=== PATIENT | male | born 1995 | race Caucasian/White ===

== ENCOUNTER 2019-10-01 16:37 | Emergency (ER) | payer SELFPAY ==
--- NOTE | ~2019-10-01 | XR_ITS ---
XR finger 1st LT min 2V 10/01/2019 16:54 INDICATION: Left first finger pain PROCEDURE: 3 views left first finger COMPARISON: No prior studies for comparison. FINDINGS: Fracture, dislocation or subluxation is not identified. The soft tissues appear within norm al limits. No foreign bodies are identified. IMPRESSION: 1: NO ACUTE BONE OR JOINT ABNORMALITY IDENTIFIED. Reviewed, dictated and finalized at location A.
--- NOTE | 2019-10-01 16:42 | ED.UPPEXIN ---
HPI - Extremity Injury (Upper) General Chief Complaint: Extremity Injury, Upper Stated Complaint: Thumb injury Time Seen by Provider: 10/01/19 16:42 Source: patient and RN notes reviewed History of Present Illness HPI narrative: Patient is a 24-year-old male who presents the urgent care with complaints of a left thumb injury. Patient states that he smashed it in between a piece of metal on a lawnmower . Patient states that the throbbing and the pain has increased since it initially happened approximately 2 hours ago. Patient has not taken anything [id number] for his symptoms. Patient is not up-to-date on his tetanus. No other acute complaints or injuries. Patient aware of the plan of care. Related Data Allergies Allergy/AdvReac Type Severity Reaction Status Date / Time No Known Allergies Allergy Verified 10/01/19 16:55 Review of Systems Review of Systems: Narrative: CONSTITUTIONAL: Denies fever, chills, or sweats. EYES: Denies visual changes, redness, or discharge. ENT: Denies rhinorrhea, congestion, sore throat, or otalgia. CARDIOVASCULAR: Denies chest pain, palpitations, or edema. RESPIRATORY: Denies cough or dyspnea. GASTROINTESTINAL: Denies abdominal pain, nausea, vomiting, or diarrhea. GENITOURINARY: Denies dysuria or hematuria. SKIN: Denies rash or itching. MUSCULOSKELETAL: Reports of left thumb pain and swelling due to injury NEUROLOGIC: Denies headache, numbness, or weakness. All other systems reviewed are negative, except as documented in HPI. PMFSH Comments At the time of my signature, I reviewed and agree with the nursing past medical, surgical, social, and family history. There is no relevant family history pertinent to the patient complaint. Exam Narrative: Exam Narrative: GENERAL: This is a well-nourished, well-developed patient, in no apparent distress. HEAD: normocephalic, atraumatic. EYES: PERRL. Sclera clear/white. Vision is grossly intact. EARS: External ears normal NOSE: External nose normal with no obvious nasal discharge THROAT: Mucous membranes moist NECK: Neck supple SKIN: 1 cm linear abrasion to the left thumb. Warm, intact with no suspicious lesions or rash, good texture and turgor. NEURO: awake, alert, and oriented to person, place and time. There were no obvious focal neurologic abnormalities. EXTREMITIES: Moderate edema and ecchymosis noted to the MCP of the left thumb with moderate tenderness. Range of motion not tested due to pain. Positive strong left radial pulse with capillary refill less than 2 seconds. Course Vital Signs Vital signs: Vital Signs Temperature 98.8 F 10/01/19 16:46 Pulse Rate 82 10/01/19 16:46 Respiratory Rate 16 10/01/19 16:46 Blood Pressure 129/60 10/01/19 16:46 Pulse Oximetry 100 10/01/19 16:46 Temperature 98.8 F 10/01/19 16:46 Pulse Rate 82 10/01/19 16:46 Respiratory Rate 16 10/01/19 16:46 Blood Pressure 129/60 10/01/19 16:46 Pulse Oximetry 100 10/01/19 16:46 Reviewed Procedures Orthopedic Splinting/Casting Injury #1: Side: left Pre-Formed: metal foam finger splint (thumb metal splint ) Pre-Procedure Neuro Vascular Exam: normal Post-Procedure Neuro Vascular Exam: normal Additional Comments: patient tolerated application well MDM - Extremity Injury (Upper) MDM Narrative Medical decision making narrative: Reviewed x-ray results with the patient. He is aware the x-ray was negative for fracture. Advised the patient to wear the splint for comfort for the next 3 days. Use ibuprofen as needed for pain. Make sure to eat and drink with the medication. If you notice any increase in swelling associated with severe pain or redness?go to the ER. Follow-up with your PCP within 2 to 5 days or for worsening symptoms or failure to improve. Patient does not wish to be given a tetanus shot at this time. Imaging Data Radiologist's impression: [place] [id number] [address] [facility] [place]
[2019-10-01 16:46] VITALS: BP 129/60; PULSE 82; RESP 16; TEMP 37.1; O2SAT 100
== END 2019-10-01 17:12 | disposition home or self-care (01) ==
PROVIDERS: Emergency Provider Nurse Practitioner Family
DX: S69.92XA Unspecified injury of left wrist, hand and finger(s), initial encounter (principal); W28.XXXA Contact with powered lawn mower, initial encounter
CPT/HCPCS: 29130; 73140; 99203; G0463

== ENCOUNTER 2019-10-27 13:36 | Emergency (ER) | payer SELFPAY ==
[2019-10-27 13:45] VITALS: BP 117/62; PULSE 85; RESP 16; TEMP 36.4; O2SAT 98
--- NOTE | 2019-10-27 14:01 | ED.LOWEXIN ---
HPI - Extremity Injury (Lower) General Chief Complaint: Extremity Injury, Lower Stated Complaint: right knee pain/swollen Time Seen by Provider: 10/27/19 13:52 Source: patient and RN notes reviewed Mode of arrival: ambulatory Limitations: no limitations History of Present Illness HPI Narrative: 24-year-old male presents with concern for right knee pain. Reports yesterday he was wrestling around with a friend, the friend fell onto the knee. Reports knee swelling, lateral and medial pain. Reports minimal pain when he is at rest, pain increases with range of motion, weightbearing. Reports he feels unable to straighten his knee. He denies any lower leg or foot pain, tingling, swelling. Denies any intervention for his injury MD complaint: knee injury Injury: Right: knee Related Data Allergies Allergy/AdvReac Type Severity Reaction Status Date / Time No Known Allergies Allergy Verified 10/27/19 14:00 Review of Systems Review of Systems: Narrative: CONSTITUTIONAL: Denies malaise, chills, sweats, or fever. SKIN: Denies redness, bruising MUSCULOSKELETAL: Reports right knee pain, swelling, decreased range of motion NEUROLOGIC: Denies numbness, weaknessn. All systems reviewed & are unremarkable except as noted in HPI and below PMFSH Comments At time of signature, agree with nursing past medical, surgical, social and family history. There is no relevant family history pertinent to the presenting complaint Exam Narrative: Exam Narrative: GENERAL: Well-appearing, well-nourished, and in no acute distress. HEAD: Normocephalic, atraumatic. EYES: PERRLA, conjunctivae clear NECK: Supple. CHEST: Speaks in full sentences. No respiratory distress. HEART: Regular rate and rhythm. Normal and equal peripheral pulses. EXTREMITIES: Right knee has normal sensation. Moderate circumferential edema, limited range of motion. 3 /5 strength with knee flexion and extension. Normal sensation with sensitivity to light touch and pain. No open wounds, no skin tenting, no devitalized tissue or atrophy, no trophic changes, no ecchymosis, no obvious deformity, alignment normal, medial and lateral tenderness, nearby joints and structures intact. Distal pulses palpable and equal bilaterally, skin warm, dry, pink. Capillary refill less than 3 seconds. Lever test negative, anterior drawer test negative SKIN: Warm, dry, no rash. NEURO: Alert and oriented x3. PSYCH: Normal mood and affect Course Course Emergency Course: Patient is aware of diagnosis, understands and agrees to treatment plan. Anticipatory guidance given. Patient agrees to follow-up as directed and is aware of reasons to seek care at the emergency department. Portions of this record may have been created with voice recognition software Vital Signs Vital signs: Vital Signs Temperature 97.5 F L 10/27/19 13:45 Pulse Rate 85 10/27/19 13:45 Respiratory Rate 16 10/27/19 13:45 Blood Pressure 117/62 10/27/19 13:45 Pulse Oximetry 98 10/27/19 13:45 Temperature 97.5 F L 10/27/19 13:45 Pulse Rate 85 10/27/19 13:45 Respiratory Rate 16 10/27/19 13:45 Blood Pressure 117/62 10/27/19 13:45 Pulse Oximetry 98 10/27/19 13:45 Reviewed. MDM - Extremity Injury (Lower) MDM Narrative Medical decision making narrative: Patients injury and pain is consistent with musculoskeletal etiology. No signs of neurological or vascular compromise on exam. Compartments and tissues are soft without signs of compartment syndrome. Pain is felt appropriate for further evaluation on an outpatient basis. Critical Care Time Critical Care Time Critical Care Time: No Discharge Plan Discharge Clinical Impression: Injury of knee Qualifiers: Encounter type: initial encounter Laterality: right Qualified Code(s): S89.91XA - Unspecified injury of right lower leg, initial encounter Patient Disposition: Home, Self-Care Condition: Stable Instructions: Knee Pain (ED) Additional Instructions: A
== END 2019-10-27 14:11 | disposition home or self-care (01) ==
PROVIDERS: Emergency Provider Nurse Practitioner
DX: S89.91XA Unspecified injury of right lower leg, initial encounter (principal); Y93.83 Activity, rough housing and horseplay; W18.39XA Other fall on same level, initial encounter
CPT/HCPCS: 99213; G0463

== ENCOUNTER 2019-12-23 10:46 | Emergency (ER) | payer SELFPAY ==
[2019-12-23 10:52] VITALS: BP 124/82; PULSE 56; RESP 18; TEMP 36.4; O2SAT 100
--- NOTE | 2019-12-23 11:09 | ED.GENADULT ---
HPI - General Adult General Chief complaint: Dental/Oral Stated complaint: tooth pain Time Seen by Provider: 12/23/19 11:09 Source: patient and RN notes reviewed Mode of arrival: ambulatory Limitations: no limitations History of Present Illness HPI narrative: 24-year-old male presents with complaints of dental pain for 1 day. Excedrin without relief. Waqas says he broke a tooth off several years ago and has been having trouble without treatment. Denies any drainage. No fever. No jaw swelling. No neck swelling. No limitation with speaking or swallowing. Has history of dental caries. Has not seen a dentist recently. No dental trauma. No oral lesions. Exacerbating factors consist of chewing eating and drinking cold items. Relieving factors avoiding cold items. No dentures or bridges. Tolerating liquids well. The patient reports he have not been diagnosed with COVID-19. The patient reports he is not waiting for the results of a COVID-19 lab test. The patient reports he do not have fever, chills, weakness, fatigue, myalgia, or facial swelling. The patient reports he do not have a new or worsening cough or shortness of breath. Denies chest pain. The patient reports he do not have any rhinorrhea, congestion, sore throat, nausea, vomiting, abdominal pain, and diarrhea. Tolerating po intake well. Denies recent traveling. Denies concerns for COVID-19 or exposures been home with limited outdoor exposure except for essential household needs, work, and return home. At this time, patient is not suspected of having COVID-19. Some parts of this dictation were generated by voice recognition software and may contain typographical and/or grammatical inaccuracies. Related Data Allergies Allergy/AdvReac Type Severity Reaction Status Date / Time No Known Allergies Allergy Verified 12/23/19 10:57 Review of Systems Review of Systems: Narrative: CONSTITUTIONAL: Denies fever, chills, sweats. EYES: Denies visual changes, redness, discharge. ENT: Denies rhinorrhea, congestion, sore throat, otalgia. Complains of front lower dental pain. CARDIOVASCULAR: Denies chest pain, palpitations, edema. RESPIRATORY: Denies dyspnea, wheezing, cough. GASTROINTESTINAL: Denies abdominal pain, nausea, vomiting, diarrhea. GENITOURINARY: Denies dysuria, hematuria, abnormal discharge. SKIN: Denies rash or itching. MUSCULOSKELETAL: Denies acute back pain, joint pain, or myalgia. NEUROLOGIC: Denies numbness or focal weakness. PSYCHIATRIC: Denies anxiety or depression. All systems reviewed & are unremarkable except as noted in HPI and below. [facility] Past Medical History Medical History (Updated 12/23/19 @ 11:26 by ROLANDO Worley) History of gastroesophageal reflux (GERD) Wrist fracture, bilateral at growth plates Surgical History Surgical History (Updated 12/23/19 @ 11: by ROLANDO Worley) No significant past surgical history Family History Family History (Updated 12/23/19 @ 11: by ROLANDO Worley) Father Unknown family medical history Mother Alive and well Social History Social History (Updated 12/23/19 @ 11: by ROLANDO Worley) Tobacco type: e-cigarettes/vaping Alcohol intake: current Substance use: former Living arrangements: with family Occupation/Education: occupation Gender identity (if verbalized by the patient): Male Sexual Orientation (if Verbalized by the Patient): Straight or Heterosexual Comments At time of signature, agree with nurse past medical, surgical, social, and family history. There is no relevant family history pertinent to the presenting complaint. Exam Narrative: Exam Narrative: GENERAL: This is a well-nourished, well-developed patient, in no apparent distress. Talks in full sentences ans ambulates with steady gait without dyspnea. HEAD: normocephalic, atraumatic. EYES: PERRL. Sclera clear/white. Vision is grossly intact. EARS: External ears normal, coding auditor
== END 2019-12-23 11:24 | disposition home or self-care (01) ==
PROVIDERS: Emergency Provider Nurse Practitioner Family
DX: K02.9 Dental caries, unspecified (principal); K08.89 Other specified disorders of teeth and supporting structures; F17.200 Nicotine dependence, unspecified, uncomplicated; K21.9 Gastro-esophageal reflux disease without esophagitis
CPT/HCPCS: 99213; G0463

== ENCOUNTER 2020-04-04 16:48 | Emergency (ER) | payer SELFPAY ==
[2020-04-04 16:50] VITALS: BP 126/71; PULSE 70; RESP 18; TEMP 36.8; O2SAT 100
--- NOTE | 2020-04-04 16:54 | ED.MALEGU ---
HPI - Male Genitourinary General Chief complaint: Urogenital-Male Stated complaint: std test Time Seen by Provider: 04/04/20 16:54 History of Present Illness HPI Narrative: Patient presents with discomfort to the tip of the penis and a thin white discharge for the past week. Patient denies any back pain no fever. Patient thinks he has been exposed to an STD day but is unsure which one. Patient would like treated and tested for STDs today. Patient denies any gross hematuria no abdominal pain patient denies any testicle pain. Related Data Allergies Allergy/AdvReac Type Severity Reaction Status Date / Time No Known Allergies Allergy Verified 04/04/20 17:05 Review of Systems Review of Systems: Narrative: CONSTITUTIONAL: Denies fever, chills, or sweats. EYES: Denies visual changes, redness, or discharge. ENT: Denies rhinorrhea, congestion, sore throat, or otalgia. CARDIOVASCULAR: Denies chest pain, palpitations, or edema. RESPIRATORY: Denies cough or dyspnea. GASTROINTESTINAL: Denies abdominal pain, nausea, vomiting, or diarrhea. GENITOURINARY: Denies dysuria or hematuria. SKIN: Denies rash or itching. MUSCULOSKELETAL: Denies back pain, joint pain, or myalgia. NEUROLOGIC: Denies headache, numbness, or weakness. PSYCHIATRIC: Denies anxiety or depression. CONSTITUTIONAL: Denies fever, chills, or sweats. EYES: Denies visual changes, redness, or discharge. ENT: Denies rhinorrhea, congestion, sore throat, or otalgia. CARDIOVASCULAR: Denies chest pain, palpitations, or edema. RESPIRATORY: Denies cough or dyspnea. GASTROINTESTINAL: Denies abdominal pain, nausea, vomiting, or diarrhea. GENITOURINARY: Denies dysuria or hematuria. SKIN: Denies rash or itching. MUSCULOSKELETAL: Denies back pain, joint pain, or myalgia. NEUROLOGIC: Denies headache, numbness, or weakness. PSYCHIATRIC: Denies anxiety or depression. Allergic/Immunologic: Comments: At time of signature, agree with nursing past medical, surgical, social and family history. There is no relevant family history pertinent to the presenting complaint [facility] Past Medical History Medical History (Updated 04/04/20 @ 17:11 by ROLANDO Freeman) History of gastroesophageal reflux (GERD) Wrist fracture, bilateral at growth plates Surgical History Surgical History (Updated 12/23/19 @ 11:26 by ROLANDO Worley) No significant past surgical history Family History Family History (Updated 12/23/19 @ 11:27 by ROLANDO Worley) Father Unknown family medical history Mother Alive and well Social History Social History (Updated 12/23/19 @ 11:27 by ROLANDO Worley) Tobacco type: e-cigarettes/vaping Alcohol intake: current Substance use: former Gender identity (if verbalized by the patient): Male Comments At time of signature, agree with nursing past medical, surgical, social and family history. There is no relevant family history pertinent to the presenting complaint Exam Narrative: Exam Narrative: GENERAL: Well-appearing, well-nourished, and in no acute distress. HEAD: Normocephalic, atraumatic. EYES: PERRLA and EOMI. ENT: Nares clear, no rhinorrhea or epistaxis. Mucous membranes moist. NECK: Supple. CHEST: Clear to auscultation. No respiratory distress. HEART: Regular rate and rhythm. No murmur heard. Normal peripheral pulses. ABDOMEN: Soft, nontender, nondistended, normal active bowel sounds. Normal exam no penile lesions no testicular swelling and no tenderness EXTREMITIES: Normal range of motion. No edema. SKIN: Warm, dry, no rash. NEURO: No focal deficits. Alert and oriented x3. Nuno Coma Scale Eye Opening: Spontaneous 4 Nuno Coma Scale Motor: Obeys Commands 6 Darwin Coma Scale Verbal: Oriented 5 Nuno Coma Scale Total 15 : General: Yes no CVA tenderness Male General Exam: Yes normal external exam Testes: Testes normal Course Vital Signs Vital signs: Vital Signs Temperature 36.8 C 04/04/20 16:50 P
[2020-04-04] MEDS: cefTRIAXone 250 MG VIAL IM (17:16)
[2020-04-04] MEDS: LIDOCAINE HCL 1% LOCAL INJ 20 ML VIAL IM (17:17)
[2020-04-04] MEDS: AZITHROMYCIN 250 MG TABLET 500 MG PO ×2 (17:27→17:28)
== END 2020-04-04 17:50 | disposition home or self-care (01) ==
PROVIDERS: Emergency Provider Nurse Practitioner Family
DX: A64 Unspecified sexually transmitted disease (principal); F17.200 Nicotine dependence, unspecified, uncomplicated; K21.9 Gastro-esophageal reflux disease without esophagitis
CPT/HCPCS: 81003; 87086; 87491; 87591; 87661; 96372; 99213; A9270; G0463; J0696

== ENCOUNTER 2020-09-26 15:18 | Emergency (ER) | payer SELFPAY ==
[2020-09-26 15:29] VITALS: BP 132/87; PULSE 85; RESP 16; TEMP 37; O2SAT 100
--- NOTE | 2020-09-26 15:42 | ED.DENTAL ---
HPI - Dental/Oral General Chief complaint: Dental/Oral Stated complaint: tooth pain Time Seen by Provider: 09/26/20 15:28 Source: patient and RN notes reviewed Mode of arrival: ambulatory Limitations: no limitations History of Present Illness HPI Narrative: Patient presents today complaining of dental pain to the right lower anterior tooth that has been bothering him for the past 3 days. States he has several chipped teeth that he needs taken care of but has not been able to due to insurance concerns/issues. Denies fever, shortness of breath, difficulty swallowing. Denies any recent antibiotic use. Currently rates pain 9/10 and has been taking ibuprofen with mild relief, and also using Orajel. MD Complaint: tooth pain Related Data Allergies Allergy/AdvReac Type Severity Reaction Status Date / Time No Known Allergies Allergy Verified 04/04/20 17:05 Review of Systems Review of Systems: Narrative: CONSTITUTIONAL: Denies body aches, fever, chills, or sweats. EYES: Denies visual changes, redness, or discharge. ENT: Denies rhinorrhea, congestion, sore throat, or otalgia.+ Dental pain CARDIOVASCULAR: Denies chest pain, palpitations, or edema. RESPIRATORY: Denies cough or dyspnea. GASTROINTESTINAL: Denies abdominal pain, nausea, vomiting, or diarrhea. GENITOURINARY: Denies dysuria or hematuria. SKIN: Denies rash, itching, or wounds. MUSCULOSKELETAL: Denies back pain, joint pain, or myalgia. NEUROLOGIC: Denies headache, numbness, tingling, or weakness. PSYCH: Denies depression or anxiety. [facility] Past Medical History Medical History (Updated 09/26/20 @ 15:45 by Rody Landry, ROLANDO, ) History of gastroesophageal reflux (GERD) Wrist fracture, bilateral at growth plates Surgical History Surgical History (Updated 12/23/19 @ 11:26 by ROLANDO Worley) No significant past surgical history Family History Family History (Updated 12/23/19 @ 11:27 by ROLANDO Worley) Father Unknown family medical history Mother Alive and well Social History Social History (Updated 12/23/19 @ 11:27 by ROLANDO Worley) Tobacco type: e-cigarettes/vaping Alcohol intake: current Substance use: former Gender identity (if verbalized by the patient): Male Comments At time of signature, I have reviewed and agree with nursing past medical, surgical, social and family history unless otherwise noted. Please see nursing chart for further information. There is no relevant family history pertinent to the presenting complaint Exam Narrative: Exam Narrative: GENERAL: Well-appearing, well-nourished, and in no acute distress. HEAD: Normocephalic, atraumatic. EYES: EOMI. No redness or drainage. Conjunctivae normal. ENT: Mucous membranes pink and moist. Throat normal. Uvula midline. Tenderness and erythema to gumline adjacent to tooth #26. No obvious periapical abscess. No facial swelling. Tooth intact. NECK: Normal AROM. CHEST: No respiratory distress. EXTREMITIES: Normal range of motion. No edema. SKIN: Warm, dry, no rash. Capillary refill normal. Normal skin turgor. NEURO: No focal deficits. Alert and oriented x3. Gait steady. PSYCH: Normal affect. No signs of depression or anxiety. Course Vital Signs Vital signs: Vital Signs Temperature 98.6 F 09/26/20 15:29 Pulse Rate 85 09/26/20 15:29 Respiratory Rate 16 09/26/20 15:29 Blood Pressure 132/87 09/26/20 15:29 Pulse Oximetry 100 09/26/20 15:29 Temperature 98.6 F 09/26/20 15:29 Pulse Rate 85 09/26/20 15:29 Respiratory Rate 16 09/26/20 15:29 Blood Pressure 132/87 09/26/20 15:29 Pulse Oximetry 100 09/26/20 15:29 Reviewed. Pt has been instructed to follow up with his PCP regarding his elevated blood pressure today. MDM - Dental/Oral Differential Diagnosis Differential diagnosis: Likely gingival abscess, dental caries, toothache, dental abscess and fracture of tooth Critical Care Time Critical Care Time Cr
== END 2020-09-26 15:49 | disposition home or self-care (01) ==
PROVIDERS: Emergency Provider Nurse Practitioner
DX: K04.7 Periapical abscess without sinus (principal); F17.200 Nicotine dependence, unspecified, uncomplicated; K21.9 Gastro-esophageal reflux disease without esophagitis
CPT/HCPCS: 99213; G0463

== ENCOUNTER 2021-12-04 17:03 | Emergency (ER) | payer OTHER, SELFPAY ==
[2021-12-04 17:25] VITALS: BP 136/73; PULSE 84; RESP 16; TEMP 36.8; O2SAT 100
--- NOTE | 2021-12-04 17:49 | ED.GENADULT ---
HPI - General Adult General Chief complaint: Dental/Oral Stated complaint: Pain in mouth Source: patient Mode of arrival: ambulatory Limitations: no limitations History of Present Illness HPI narrative: Patient presents for evaluation of right upper dental pain for the last 3 days. He indicates he fractured his wisdom tooth. Reports constant, throbbing pain in the affected area. He rates his pain 10 out of 10 in severity. No fever, chills, nausea, vomiting, difficulty breathing or swallowing. He took 400 mg of ibuprofen which seemed to help. He thinks he may have a dental infection. No additional complaints or concerns Related Data Allergies Allergy/AdvReac Type Severity Reaction Status Date / Time No Known Allergies Allergy Verified 12/04/21 17:28 Review of Systems Review of Systems: CONSTITUTIONAL: Denies fever, chills, or sweats. EYES: Denies visual changes, redness, or discharge. ENT: Reports right upper dental pain. Denies rhinorrhea, congestion, sore throat, or otalgia. CARDIOVASCULAR: Denies chest pain, palpitations, or edema. RESPIRATORY: Denies cough or dyspnea. GASTROINTESTINAL: Denies abdominal pain, nausea, vomiting, or diarrhea. GENITOURINARY: Denies dysuria or hematuria. SKIN: Denies rash or itching. MUSCULOSKELETAL: Denies back pain, joint pain, or myalgia. NEUROLOGIC: Denies headache, numbness, dizziness, or weakness. PSYCHIATRIC: Denies anxiety or depression. [facility] Past Medical History Medical History History of gastroesophageal reflux (GERD) Tooth fracture Wrist fracture, bilateral at growth plates Surgical History Surgical History No significant past surgical history Family History Family History Father Unknown family medical history Mother Alive and well Social History Social History Tobacco type: e-cigarettes/vaping Alcohol intake: current Substance use: former Gender identity (if verbalized by the patient): Male Sexual Orientation (if Verbalized by the Patient): Straight or Heterosexual Exam Narrative: GENERAL: Well-appearing, well-nourished, and in no acute distress. HEAD: Normocephalic, atraumatic. EYES: PERRLA and EOMI. ENT: Nares clear, no rhinorrhea or epistaxis. Mucous membranes moist. Tooth #1 is fractured. There is no visible or palpable dental abscess. No trismus. Oropharynx without tonsillar hypertrophy exudate or other lesions. Bilateral TMs pearly bosch nonbulging NECK: Supple. No adenopathy or masses. No carotid bruits or JVD CHEST: Clear to auscultation. No respiratory distress. No wheezes rales or rhonchi HEART: Regular rate and rhythm. No murmur heard. Normal peripheral pulses. ABDOMEN: Soft, nontender, nondistended, normal active bowel sounds. EXTREMITIES: Normal range of motion. No edema. SKIN: Warm, dry, no rash. NEURO: No focal deficits. Alert and oriented x3. PSYCH: Normal mood and affect. Course Course Emergency Course: This is a 26-year-old male that presented for evaluation of right upper dental pain. He has a dental fracture in the affected area. We will cover him amoxicillin. High-dose ibuprofen should help. Tramadol for breakthrough pain. Follow-up with dentist. Go to the ER for significant swelling, difficulty breathing or swallowing. Patient is in agreement with plan of care Level of Care: Express Care Visit Vital Signs Vital signs: Vital Signs Temperature 36.8 C 12/04/21 17:25 Pulse Rate 84 12/04/21 17:25 Respiratory Rate 16 12/04/21 17:25 Blood Pressure 136/73 12/04/21 17:25 Pulse Oximetry 100 12/04/21 17:25 Oxygen Delivery Room Air 12/04/21 17:25 Temperature 36.8 C 12/04/21 17:25 Pulse Rate 84 12/04/21 17:25 Respiratory Rate 16 12/04/21 17:25 Blo
== END 2021-12-04 17:51 | disposition home or self-care (01) ==
PROVIDERS: Emergency Provider Nurse Practitioner
DX: S02.5XXA Fracture of tooth (traumatic), initial encounter for closed fracture (principal); X58.XXXA Exposure to other specified factors, initial encounter; K21.9 Gastro-esophageal reflux disease without esophagitis
CPT/HCPCS: 99213; G0463

== ENCOUNTER 2022-01-14 16:13 | Emergency (ER) | payer OTHER, SELFPAY ==
[2022-01-14 16:16] VITALS: BP 140/77; PULSE 69; RESP 14; TEMP 36.9; O2SAT 100
--- NOTE | 2022-01-14 16:29 | ED.DENTAL ---
HPI - Dental/Oral General Chief complaint: Dental/Oral Stated complaint: Toothache Time Seen by Provider: 01/14/22 16:29 Source: patient Mode of arrival: ambulatory History of Present Illness HPI Narrative: 26 y/o male presented for c/o right upper wisdom tooth pain and swelling for 2 days. This site was fractured at least 2 months ago. He has appt for extraction next week.Was seen and treated for the same on 12/04/21. Completed meds as directed. Denies nausea, vomiting, dizziness, difficulty swallowing, fever or chills. Taking Tylenol and ibuprofen as needed for pain MD Complaint: tooth pain Related Data Allergies Allergy/AdvReac Type Severity Reaction Status Date / Time No Known Allergies Allergy Verified 01/14/22 16:30 Review of Systems Review of Systems: CONSTITUTIONAL: Denies body aches, fever, chills ENT: Denies rhinorrhea, congestion, sore throat, or otalgia. Reports dental pain CARDIOVASCULAR: Denies chest pain, palpitations RESPIRATORY: Denies cough or dyspnea. SKIN: Denies rash, itching, or wounds. MUSCULOSKELETAL: Denies myalgia. NEUROLOGIC: Denies headache, numbness, tingling, or weakness. [facility] Past Medical History Medical History History of gastroesophageal reflux (GERD) Tooth fracture Wrist fracture, bilateral at growth plates Surgical History Surgical History No significant past surgical history Family History Family History Father Unknown family medical history Mother Alive and well Social History Social History Tobacco type: e-cigarettes/vaping Alcohol intake: current Substance use: former Gender identity (if verbalized by the patient): Male Sexual Orientation (if Verbalized by the Patient): Straight or Heterosexual Comments At time of signature, I have reviewed and agree with nursing past medical, surgical, social and family history unless otherwise noted. Please see nursing chart for further information. There is no relevant family history pertinent to the presenting complaint Exam Narrative: GENERAL: Appears in pain; no acute distress. HEAD: Normocephalic, atraumatic. EYES: EOMI. No redness or drainage. Conjunctivae normal. ENT: Dental pain location of #1, fractured tooth at this site, tender to palpation, mild swelling without active drainage; Mucous membranes pink and moist. TMs normal bilaterally. Throat normal. Uvula midline. NECK: Normal AROM. No lymphadenopathy. CHEST: Clear to auscultation. HEART: Regular rate and rhythm. No murmur appreciated. SKIN: Warm, dry, no rash. Normal skin turgor. NEURO: Alert and oriented x3. Gait steady. Course Course Emergency Course: Patient is aware of diagnosis, understands and agrees to treatment plan. Anticipatory guidance given. Patient agrees to follow-up as directed and is aware of reasons to seek care at the emergency department. Portions of this record may have been created with voice recognition software Level of Care: Express Care Visit Vital Signs Vital signs: Vital Signs Temperature 98.5 F 01/14/22 16:16 Pulse Rate 69 01/14/22 16:16 Respiratory Rate 14 01/14/22 16:16 Blood Pressure 140/77 01/14/22 16:16 Pulse Oximetry 100 01/14/22 16:16 Oxygen Delivery Room Air 01/14/22 16:16 Temperature 98.5 F 01/14/22 16:16 Pulse Rate 69 01/14/22 16:16 Respiratory Rate 14 01/14/22 16:16 Blood Pressure 140/77 01/14/22 16:16 Pulse Oximetry 100 01/14/22 16:16 Oxygen Delivery Room Air 01/14/22 16:16 MDM - Dental/Oral MDM Narrative Medical decision making narrative: There are no focal signs of space occupying lesions that are compromising to the airway; No uvular deviation or soft palate edema. Patient is non-toxic appearing. The floor of the jesus
== END 2022-01-14 16:37 | disposition home or self-care (01) ==
PROVIDERS: Emergency Provider Nurse Practitioner Family
DX: S02.5XXA Fracture of tooth (traumatic), initial encounter for closed fracture (principal); X58.XXXA Exposure to other specified factors, initial encounter; K21.9 Gastro-esophageal reflux disease without esophagitis
CPT/HCPCS: 99213; G0463

== ENCOUNTER 2022-04-16 16:26 | Emergency (ER) | payer OTHER, SELFPAY ==
[2022-04-16 16:32] VITALS: BP 128/63; PULSE 123; RESP 16; TEMP 35.9; O2SAT 99
--- NOTE | 2022-04-16 17:38 | ED.URI ---
HPI - URI/Sore Throat General Chief Complaint: Upper Respiratory Infection Stated Complaint: Chills/Body Ache Time Seen by Provider: 04/16/22 17:38 Source: patient, RN notes reviewed and old records reviewed Mode of arrival: ambulatory Limitations: no limitations History of Present Illness HPI Narrative: 26-year-old male presents to [facility] with complaints of chills, body aches,headache, and fevers which started today, he has been taking Tylenol for his symptoms. Patient reports that he has been vaccinated for COVID, has not had flu shot. Patient reports that he had COVID in October of 2021, did home test today and it was negative. MD elicited complaint: fever, cough and other (chills and body aches) Onset (ago): day(s) (1) Pain scale (0-10): 5 Treatments prior to arrival: acetaminophen Related Data Allergies Allergy/AdvReac Type Severity Reaction Status Date / Time No Known Allergies Allergy Verified 01/14/22 16:30 Review of Systems Review of Systems: CONSTITUTIONAL:Reports malaise, chills, sweats, or fever. EYES: Denies visual changes, redness, or discharge. ENT: Reports rhinorrhea, congestion, sinus pain, no otalgia or sore throat. CARDIOVASCULAR: Denies chest pain, palpitations, or edema. RESPIRATORY: Reports cough.? Denies dyspnea. GASTROINTESTINAL: Denies abdominal pain, nausea, vomiting, diarrhea SKIN: Denies rash or itching. MUSCULOSKELETAL:Reports myalgia. NEUROLOGIC: reports headache. All systems reviewed & are unremarkable except as noted in HPI and below PMFSH Past Medical History Medical History History of gastroesophageal reflux (GERD) Tooth fracture Wrist fracture, bilateral at growth plates Surgical History Surgical History No significant past surgical history Family History Family History Father Unknown family medical history Mother Alive and well Social History Social History Tobacco type: e-cigarettes/vaping Alcohol intake: current Substance use: former Gender identity (if verbalized by the patient): Male Sexual Orientation (if Verbalized by the Patient): Straight or Heterosexual Comments At time of signature, agree with nursing past medical, surgical, social and family history. There is no relevant family history pertinent to the presenting complaint Exam Narrative: GENERAL: Well-appearing, well-nourished, and in no acute distress. HEAD: Normocephalic EYES: PERRLA, conjunctivae clear ENT: Nares clear, turbinates edematous and erythematous, clear discharge. Mucous membranes moist. TM pearly bosch with dull light reflex bilaterally; no tragal tenderness. Oropharynx erythematous without lesions. Tonsils not enlarged and without exudate, no drooling, no hoarseness, no trismus, uvula midline, post nasal drainage NECK: Supple. No lymphadenopathy CHEST: Clear to auscultation, breath sounds equal. No wheezing, rhonchi, rales, or stridor. No respiratory distress, speaks in full sentences.dry cough noted SAO2 99% on room air HEART: Regular rate and rhythm. No murmur heard. SKIN: Warm, dry, no rash. NEURO: Alert and oriented x3. PSYCH: Normal mood and affect Course Course Emergency Course: Patient is aware of diagnosis, understands and agrees to treatment plan.? Anticipatory guidance given.? Patient agrees to follow-up as directed and is aware of reasons to seek care at the emergency department. Portions of this record may have been created with voice recognition software Level of Care: Express Care Visit Vital Signs Vital signs: Vital Signs Temperature 35.9 C L 04/16/22 16:32 Pulse Rate 123 H 04/16/22 16:32 Respiratory Rate 16 04/16/22 16:32 Blood Pressure 128/63 04/16/22 16:32 Pulse Oximetry 99 04/16/22 16:32
== END 2022-04-16 18:16 | disposition home or self-care (01) ==
PROVIDERS: Emergency Provider Registered Nurse
DX: J10.1 Influenza due to other identified influenza virus with other respiratory manifestations (principal); F17.290 Nicotine dependence, other tobacco product, uncomplicated; K21.9 Gastro-esophageal reflux disease without esophagitis
CPT/HCPCS: 87804; 99213; G0463

== ENCOUNTER 2022-06-27 09:31 | Emergency (ER) | payer OTHER, SELFPAY ==
[2022-06-27 09:35] VITALS: BP 126/68; PULSE 110; RESP 16; TEMP 36.4; O2SAT 100
--- NOTE | 2022-06-27 09:37 | ED.BACK ---
HPI - Back Pain/Injury General Chief Complaint: Back Pain/Injury Stated Complaint: Low Back Pain Time Seen by Provider: 06/27/22 09:37 Source: patient and RN notes reviewed History of Present Illness HPI Narrative: Patient is a 27-year-old male who presents to urgent care with complaints of low back pain. Patient states that he has been having constant spasms off and on for the last 2 weeks which worsened overnight. Patient denies any injury, chronic back pain, or urinary symptoms. States that he has been taking Tylenol for the pain. Patient states that he does do lifting at work however he does not believe that is where he injured his back. Patient states that he was in pain at work this morning and they asked him to obtain a note and see a provider. Patient denies any other acute complaints. No acute distress noted. Patient aware of plan care. Some parts of this dictation were generated by voice recognition software and may contain typographical and/or grammatical inaccuracies. Related Data Allergies Allergy/AdvReac Type Severity Reaction Status Date / Time No Known Allergies Allergy Verified 06/27/22 09:40 Review of Systems Review of Systems: CONSTITUTIONAL: Denies fever, chills, or sweats. EYES: Denies visual changes, redness, or discharge. ENT: Denies rhinorrhea, congestion, sore throat, or otalgia. CARDIOVASCULAR: Denies chest pain, palpitations, or edema. RESPIRATORY: Denies cough or dyspnea. GASTROINTESTINAL: Denies abdominal pain, nausea, vomiting, or diarrhea. GENITOURINARY: Denies dysuria or hematuria. SKIN: Denies rash or itching. MUSCULOSKELETAL: Reports of low back pain NEUROLOGIC: Denies headache, numbness, or weakness. All other systems reviewed are negative, except as documented in HPI. [facility] Past Medical History Medical History History of gastroesophageal reflux (GERD) Tooth fracture Wrist fracture, bilateral at growth plates Surgical History Surgical History No significant past surgical history Family History Family History Father Unknown family medical history Mother Alive and well Social History Social History Tobacco type: e-cigarettes/vaping Alcohol intake: current Substance use: former Living arrangements: with family Occupation/Education: occupation Gender identity (if verbalized by the patient): Male Sexual Orientation (if Verbalized by the Patient): Straight or Heterosexual Comments At the time of my signature, I reviewed and agree with the nursing past medical, surgical, social, and family history. There is no relevant family history pertinent to the patient complaint. Exam Narrative: GENERAL: This is a well-nourished, well-developed patient, in no apparent distress. HEAD: normocephalic, atraumatic. EYES: PERRL. Sclera clear/white. Vision is grossly intact. EARS: External ears normal NOSE: External nose normal with no obvious nasal discharge, nares without redness, no rhinorrhea. THROAT: Mucous membranes moist NECK: Neck supple SKIN: warm, intact with no suspicious lesions or rash, good texture and turgor. NEURO: awake, alert, and oriented to person, place and time. There were no obvious focal neurologic abnormalities. EXTREMITIES: No clubbing, cyanosis, or edema. BACK: Bilateral SLE exam is Course Course Level of Care: Express Care Visit Vital Signs Vital signs: Vital Signs Temperature 97.5 F L 06/27/22 09:35 Pulse Rate 110 H 06/27/22 09:35 Respiratory Rate 16 06/27/22 09:35 Blood Pressure 126/68 06/27/22 09:35 Pulse Oximetry 100 06/27/22 09:35 Oxygen Delivery Room Air 06/27/22 09:35 Temperature 97.5 F L 06/27/22 09:35 Pulse Rate 110 H 06/27/22 09:35 Respiratory Rate 16 06/27/22 09:35 Blood Pr
== END 2022-06-27 09:56 | disposition home or self-care (01) ==
PROVIDERS: Emergency Provider Nurse Practitioner Family; PCP Emergency Medicine
DX: M62.830 Muscle spasm of back (principal); F17.290 Nicotine dependence, other tobacco product, uncomplicated; K21.9 Gastro-esophageal reflux disease without esophagitis
CPT/HCPCS: 99213; G0463

== ENCOUNTER 2022-07-13 12:16 | Outpatient (CLI) | payer OTHER, SELFPAY ==
--- NOTE | ~2022-07-13 | XR_ITS ---
AP and lateral views of the right hip Clinical history: Pain Findings: No acute fracture or dislocation is seen. Osseous alignment is anatomic. Right hip joint is preserved. Soft tissues are unremarkable. Impression: No significant abnormality is seen. Reviewed, dictated and finalized at location M. Y ABROAD COORDINATOR Impression: No significant abnormality is seen.
--- NOTE | ~2022-07-13 | XR_ITS ---
Lumbosacral Spine: AP and lateral views Clinical History: Pain Findings: The normal lordotic curve is maintained. The vertebral bodies and posterior elements are i ntact. The intervertebral disc spaces are preserved. The sacroiliac joints are normally outlined. Impression: No significant abnormality. Reviewed, dictated and finalized at [facility]. [employer] FINANCIAL DEVELOPER Impression: No significant abnormality.
--- NOTE | ~2022-07-13 | XR_ITS ---
AP and lateral views of the left hip Clinical history: Pain Findings: No acute fracture or dislocation is seen. Osseous alignment is anatomic. Left hip joint is preserved. Soft tissues are unremarkable. Impression: No significant abnormality is seen. Reviewed, dictated and finalized at location M. HEAT ROOM ATTENDANT Impression: No significant abnormality is seen.
--- NOTE | ~2022-07-13 | XR_ITS ---
Clinical Indication: Vaping history, smoking history, pain PA and lateral views of the chest: Comparison: None Findings: The lungs are clear, without evidence of focal consolidation or pleural effusion. Cardiome diastinal silhouette is within normal limits. Bones and soft tissues are unremarkable. Impression: Normal chest. Reviewed, dictated and finalized at [facility]. GENCY MEDICINE SPECIALIST Impression: Normal chest.
[2022-07-13 12:36] LABS: Hematocrit 46.3 % (42.0-52.0); Hemoglobin 15.5 g/dL (14.0-18.0); Mean Corpuscular HGB Conc 33.5 g/dl (32-36); Mean Corpuscular Hemoglobin 29.9 pg (26-34); Mean Corpuscular Volume 89.4 fl (80-100); Mean Platelet Volume 11.5 fl (7.4-10.4); Platelet Count Result 220 k/mm3 (150-375); Red Blood Count 5.18 M/mm3 (4.6-6.20); White Blood Count 9.7 K/mm3 (4.5-10.0)
[2022-07-13 12:38] LABS: Appearance Urine Clear (Clear); Bilirubin Urine Negative (Negative); Blood Urine Negative (Negative); Color Urine Yellow (Yellow); Glucose Urine UA Negative (Negative); Ketones Urine Negative (Negative); Leukocyte Esterase Ur Negative LEU/UL (NEGATIVE); Nitrate Urine Negative (Negative); Protein Urine Negative (Negative); Specific Grav Ur 1.019 (1.001-1.035); Urobilinogen Urine 0.2 mg/dL (<2.0)
[2022-07-13 12:45] LABS: Hemoglobin A1C 5.3 % (<5.7)
[2022-07-13 12:50] LABS: Add Urine Microscopic? NO
[2022-07-13 12:52] LABS: Alanine Aminotransferase 24 U/L (6-50); Albumin Level 4.6 g/dL (3.5-5.1); Alkaline Phosphatase 55 U/L (38-126); Anion Gap 6 mmol/L (8-16); Aspartate Amino Transferase 21 U/L (17-59); Bilirubin,Total 0.8 mg/dL (0.2-1.3); Blood Urea Nitrogen 13 mg/dL (9-20); Calcium 8.9 mg/dL (8.4-10.2); Carbon Dioxide 30 mmol/L (22-30); Chloride 100 mmol/L (98-107); Cholesterol 175 mg/dL (0-200); Estimated Glomerular Filt Rate > 60; Glucose 98 mg/dL (65-110); HDL Direct 44 mg/dL; Potassium 4.2 mmol/L (3.4-5.0); Sodium 136 mmol/L (137-145); Triglycerides 113 mg/dL (<150)
[2022-07-13 12:53] LABS: Rheumatoid Factor < 8.6 IU/ML (<12)
[2022-07-13 13:03] LABS: LDL Cholesterol Direct 97 mg/dL
[2022-07-13 13:13] LABS: Free T4 Free Thyroxine 1.25 ng/mL (0.78-2.19); Vitamin D 25 Hydroxy 33.6 ng/mL
[2022-07-13 13:23] LABS: Erythrocyte Sedimentation Rate 6 mm/hr (0-20)
[2022-07-13 13:33] LABS: Creatinine Urine 131.6 mg/dL
[2022-07-13 14:00] LABS: MALB Creatinine Ratio < 4.6 mg/g (0-30); Microalbumin Urine Random < 6.0 mg/L (0-16.7)
== END 2022-07-13 12:17 | disposition home or self-care (01) ==
PROVIDERS: PCP Emergency Medicine; Visit Provider Emergency Medicine
DX: M54.50 Low back pain, unspecified (principal); M25.551 Pain in right hip; M25.552 Pain in left hip; F41.9 Anxiety disorder, unspecified
CPT/HCPCS: 36415; 71046; 72100; 73502; 80053; 80061; 81003; 82043; 82306; 83036; 84439; 84443; 85027; 85652; 86038; 86430

== ENCOUNTER 2023-04-24 17:26 | Emergency (ER) | payer OTHER, SELFPAY ==
[2023-04-24 17:32] VITALS: BP 152/95; PULSE 80; RESP 20; TEMP 36.9; O2SAT 100
[2023-04-24 17:43] VITALS: BP 152/95; PULSE 80; RESP 20; TEMP 36.9; O2SAT 100
--- NOTE | 2023-04-24 17:43 | ED.ABDPAIN ---
HPI - Abdominal Pain General Chief Complaint: Abdominal Pain Stated Complaint: Lower right abdo pain Time Seen by Provider: 04/24/23 17:44 Source: patient and RN notes reviewed Mode of arrival: ambulatory Limitations: no limitations History of Present Illness HPI narrative: 27-year-old male presented for complaint of right lower abdominal pain for 2 days. He reports pain is constant and feels like a pressure. Pain is worse in seated position, feels better laying flat or standing. He rates it about 3/10. Has not taken anything for symptoms. Denies associated nausea, vomiting, diarrhea, fevers or decreased appetite. Denies groin swelling or testicular pain. Denies abdominal surgery. LBM today, loose stool. Related Data Home Medications Medication Instructions Recorded Confirmed No Home Medications 04/24/23 04/24/23 Allergies Allergy/AdvReac Type Severity Reaction Status Date / Time No Known Allergies Allergy Verified 04/24/23 17:43 Review of Systems Review of Systems: CONSTITUTIONAL: Denies body aches, fever, chills ENT: Denies rhinorrhea, congestion CARDIOVASCULAR: Denies chest pain, palpitations, or edema. RESPIRATORY: Denies cough or dyspnea. GASTROINTESTINAL: Endorses RLQ abdominal pain, Denies nausea, vomiting, diarrhea, hematochezia, melena, hematemesis GENITOURINARY: Denies dysuria, hematuria, or CVA tenderness. SKIN: Denies rash, itching, or wounds. MUSCULOSKELETAL: Denies back pain, joint pain, or myalgia. NEUROLOGIC: Denies headache, numbness, tingling, or weakness. All systems reviewed & are unremarkable except as noted in HPI and below PMFSH Past Medical History Medical History History of gastroesophageal reflux (GERD) Tooth fracture Wrist fracture, bilateral at growth plates Surgical History Surgical History No significant past surgical history Family History Family History Father Unknown family medical history Mother Alive and well Social History Social History Tobacco type: e-cigarettes/vaping Alcohol intake: current Substance use: former Living arrangements: with family Occupation/Education: occupation Gender identity (if verbalized by the patient): Male Sexual Orientation (if Verbalized by the Patient): Straight or Heterosexual Comments At time of signature, I have reviewed and agree with nursing past medical, surgical, social and family history unless otherwise noted. Please see nursing chart for further information. There is no relevant family history pertinent to the presenting complaint Exam Narrative: GENERAL: Well-appearing, and in no acute distress. EYES: EOMI. Conjunctivae normal. ENT: Mucous membranes pink and moist. CHEST: No respiratory distress. Clear to auscultation. HEART: Regular rate and rhythm. No murmur appreciated. Normal peripheral pulses. ABDOMEN: abd soft, nondistended, normal active bowel sounds. Mildly Tender abdomen to RLQ and mild tenderness to right groin. No guarding, rebound tenderness, asymmetry, no groin swelling. No organomegaly EXTREMITIES: Normal range of motion. No edema. SKIN: Warm, dry, no rash. Capillary refill normal. Normal skin turgor. NEURO: No focal deficits. Alert and oriented x3. PSYCH: Normal affect. Course Course Emergency Course: Patient is aware of diagnosis, understands and agrees to treatment plan. Anticipatory guidance given. Patient agrees to follow-up as directed and is aware of reasons to seek care at the emergency department. Portions of this record may have been created with voice recognition software Level of Care: Express Care Visit Vital Signs Vital signs: Vital Signs Temperature 98.5 F 04/24/23 17:32 Pulse Rate 80 04/24/23 17:32 Respiratory R
== END 2023-04-24 17:58 | disposition left against medical advice (07) ==
PROVIDERS: Emergency Provider Nurse Practitioner Family; PCP Emergency Medicine
DX: R10.31 Right lower quadrant pain (principal); F17.290 Nicotine dependence, other tobacco product, uncomplicated
CPT/HCPCS: 99212; G0463

== ENCOUNTER 2024-06-17 15:48 | Emergency (ER) | payer OTHER, SELFPAY ==
--- OUTSIDE RECORDS SUMMARY | 2024-06-17 15:51 | XMS_ITS | Clinical Summary ---
Author Organization [facility] Address [address] [place] [address] Phone Care Team Providers Care Air Filler Name Role Phone Ed Matos MD Primary Care Provider [phone] Allergies No known active allergies Medications famotidine (PEPCID) 20 MG Tablet Take 1 Tab by mouth 2 times daily. 30 Tab 10/05/2019 Active ondansetron (ZOFRAN) 4 MG Tablet Take 1 Tab by mouth every 8 hours as needed for Nausea - 1st line. 10 Tab 10/05/2019 Active dicyclomine (BENTYL) 20 MG Tablet Take 1 Tablet by mouth every 6 hours. 30 Tablet 04/24/2023 Active traMADol (ULTRAM) 50 MG TabletIndicatio ns:Dental caries Take 1-2 Tablets by mouth every 6 hours as needed for Moderate or more severe pain. 20 Tablet 10/17/2023 Active Social History Tobacco Use Types Packs/Day Years Used Date Smoking Tobacco: Every Day Cigarettes Smokeless Tobacco: Never Tobacco Cessation:Ready to Q uit: Not Asked; Counseling Given: Not Answered Alcohol Use Standard Drinks/Week Comments Not Currently 0 (1 standard drink = 0.6 oz pur e alcohol) Sex and Gender Information Value Date Recorded Sex Assigned at Not on file Legal Sex Male 12:07 AM CDT Gender Identity Not on file Sexual Orientation Not on file Last Filed Vital Signs Vital Sign Reading Time Taken Comments Blood Pressure 133/69 10/16/2023 11:11 PM CDT Pulse 71 10/16/2023 11:11 PM CDT Temperature 36.7 C (98 F) 10/16/2023 11:11 PM CDT Respiratory Rate 16 04/24/2023 10:53 PM GRADUATE STUDENT INSTRUCTOR Oxygen Saturation 100% 10/16/2023 11:11 PM CDT Inhaled Oxygen Concentration - - Weight 90.7 kg (200 lb) 10/16/2023 11:11 PM CDT Height 180.3 cm (5' 11 ) 10/16/2023 11:11 PM CDT Body Mass Index 27.89 10/16/2023 11:11 PM CDT Plan of Treatment Health Maintenance Due Date Last Done Comments Hepatitis C Virus (HCV) Screening 1994 Hepatitis B Immunization (1 of 3 - 19+ 3-dose series) 2013 Pneumococcal Immunization Combined (1 of 2 - PCV) 2013 Influenza Immunization (#1) 2024 SARS-COV-2 Immunization (2 - season) 2024 03/26/2021 Respiratory Syncytial Virus (RSV) Immunization (Adult) (1 - 1-dose 75+ series) 2069 DTaP/Tdap/Td Immunization Discontinued 11/16/2019 TdaP Immunization Completed 11/16/2019 Meningococcal Immunization (ACWY) Aged Out No longer eligible based on patient's age to complete this topic Rotavirus Immunization Aged Out No lo nger eligible based on patient's age to complete this topic Insurance Care Teams Air Filler Relationship Specialty Start Date End Date Ed Matos MD [address] [address] PCP - General Family Medicine 04/24/23
--- OUTSIDE RECORDS SUMMARY | 2024-06-17 15:51 | XMS_ITS | Clinical Summary ---
Author Organization [facility] Address [address] [place] [address] Care Team Providers Care Golf Course Mechanic Name Role Phone Ed Matos MD Primary Care Provider [phone] Allergies No known active allergies Medications acetaminophen (TYLENOL) 500 mg tablet Take 2 tablets (1,000 mg total) by mouth every 8 (eight) hours as needed for pain for up to 20 doses 40 tablet 3 Active ibuprofen (ADVIL,MOTRIN) 800 mg tablet Take 1 tablet (800 mg total) by mouth every 8 (eight) hours as needed for pain 20 tablet 3 Active oxyCODONE (ROXICODONE) 5 mg immediate release tabletIndicatio ns:Pain Take 1 tablet (5 mg total) by mouth every 8 (eight) hours as needed for pain (Severe, breakthrough pain) 6 tablet 3 Active Active Problems No known active problems Immunizations Name Administration Dates Next Due Tdap 11/16/2019 Social History Tobacco Use Types Packs/Day Years Used Date Smoking Tobacco: Never Assessed Personal Safety Answer Date Recorded Getting School Help Needed Denies 06/28 Sex and Gender Information Value Date Recorded Sex Assigned at Not on file 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 Gender Identity Not on file Sexual Orientation Not on file Obstetrics History Last Filed Vital Signs Vital Sign Reading Time Taken Comments Blood Pressure 146/91 07/17/2022 10:44 PM CDT Pulse 86 07/17/2022 10:44 PM CDT Temperature 37.1 C (98.8 F) 07/17/2022 10:44 PM CDT Respiratory Rate 19 07/17/2022 10:44 PM CDT Oxygen Saturation 100% 07/17/2022 10:44 PM CDT Inhaled Oxygen Concentration - - Weight 89.8 kg (198 lb) 07/17/2022 10:44 PM CDT Height 180.3 cm (5' 11 ) 07/17/2022 10:44 PM CDT Body Mass Index 27.62 07/17/2022 10:44 PM CDT Plan of Treatment Health Maintenance Due Date Last Done Comments Depression Screening 1994 Hepatitis C Screening 1994 Varicella Vaccines (1 of 2 - 13+ 2-dose series) 2007 Hepatitis B Screening 2012 Regular Well Visit/Exam 18-64 2012 Influenza Vaccine (#1) 2024 DTaP/Tdap/Td Vaccine (2 - Td or Tdap) 11/15/2029 11/16/2019 HPV Vaccines Aged Out No longer eligi ble based on patient's age to complete this topic Pneumococcal vaccine <65 Aged Out No longer eligible based on patient's age to complete this topic Insurance * Guarantor: Waqas Holloway Account Type Relation to Patient Date of Phone Billing Address Personal/Family Self [address] [facility] ARACELY ALLEGIANCE Care Teams Golf Course Mechanic Relationship Specialty Start Date End Date Ed Matos MD PCP - General Emergency Medicine 07/18/22
--- OUTSIDE RECORDS SUMMARY | 2024-06-17 15:51 | XMS_ITS | Referral Summary ---
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
[2024-06-17 16:32] VITALS: BP 144/68; PULSE 74; RESP 20; TEMP 36.8; O2SAT 100
--- NOTE | 2024-06-17 17:15 | ED_ITS ---
HPI - URI/Sore Throat General Chief Complaint: Upper Respiratory Infection Stated Complaint: flu symptoms/work note Time Seen by Provider: 06/17/24 17:20 Source: patient, RN notes reviewed and old records reviewed Mode of arrival: ambulatory Limitations: no limitations History of Present Illness HPI Narrative: 29-year-old male presents to [facility] since Friday with body aching, feverish, cough and congestion. He states that he never tested for flu or COVID reports that family had flu. He states that his last fever was at 0400 of 99.5, reports that he has not taken any Tylenol or Ibuprofen today. Patient reports that he needs a work note to return to work. Patient reports that he had been taking Tylenol and Ibuprofen for his symptoms. MD elicited complaint: fever, cough and other (body aches) Onset (ago): day(s) (day 4 of symptoms) Severity: moderate Able to tolerate fluids by mouth: Yes Treatments prior to arrival: acetaminophen and ibuprofen Related Data Home Medications ?Medication ?Instructions ?Recorded ?Confirmed ?Last Taken ?Type No Home Medications 04/24/23 06/17/24 Unknown History Allergies Allergy/AdvReac Type Severity Reaction Status Date / Time No Known Allergies Allergy Verified 06/17/24 16:38 Review of Systems Review of Systems: CONSTITUTIONAL: Reports malaise, chills, sweats, or fever. EYES: Denies visual changes, redness, or discharge. ENT: Reports rhinorrhea, congestion, sinus pain, no otalgia and no sore throat. CARDIOVASCULAR: Denies chest pain, palpitations, or edema. RESPIRATORY: Reports cough.? Denies dyspnea. GASTROINTESTINAL: Denies abdominal pain, nausea, vomiting, diarrhea SKIN: Denies rash or itching. MUSCULOSKELETAL:Reports myalgia. NEUROLOGIC: Denies headache. All systems reviewed & are unremarkable except as noted in HPI and below PMFSH Past Medical History Medical History Tooth fracture Wrist fracture, bilateral at growth plates History of gastroesophageal reflux (GERD) Surgical History Surgical History No significant past surgical history Family History Family History Father Unknown family medical history Mother Alive and well Social History Social History Tobacco type: e-cigarettes/vaping Alcohol intake: current Substance use: former Living arrangements: with family Occupation/Education: occupation Gender identity (if verbalized by the patient): Male Sexual Orientation (if Verbalized by the Patient): Straight or Heterosexual Comments At time of signature, agree with nursing past medical, surgical, social and family history. There is no relevant family history pertinent to the presenting complaint Exam Narrative: GENERAL: Well-appearing, well-nourished, and in no acute distress. HEAD: Normocephalic EYES: PERRLA, conjunctivae clear ENT: Nares clear, turbinates edematous and erythematous, clear discharge. Mucous membranes moist. TM pearly bosch with dull light reflex bilaterally; no tragal tenderness. Oropharynx erythematous without lesions. Tonsils not enlarged and without exudate, no drooling, no hoarseness, no trismus, uvula midline.post nasal drainage NECK: Supple. No lymphadenopathy CHEST: Clear to auscultation, breath sounds equal. No wheezing, rhonchi, rales, or stridor. No respiratory distress, speaks in full sentences.cough noted SAO2 100% on room air HEART: Regular rate and rhythm. No murmur heard. SKIN: Warm, dry, no rash. NEURO: Alert and oriented x3. PSYCH: Normal mood and affect Course Course Emergency Course: Patient is aware of diagnosis, understands and agrees to treatment plan.? Anticipatory guidance given.? Patient agrees to follow-up as directed and is aware of reasons to seek care at the emergency department. Portions of this record may have been created with voice recognition software Level of Care: Express Care Visit Vital Signs Vital signs: Vital Signs Temperature 36.8 C 06/17/24 16:32 Pulse Rate 74 06/17/24 16:32 Respiratory Rate 20 06/17/24 16:32 Blood Pressure 144/68 H 06/17/24 16:32 Pulse Oximetry 100 06/17/24 16:32 Oxygen Delivery Room Air 06/17/24 16:32 Temperature 36.8 C 06/17/24 16:32 Pulse Rate 74 06/17/24 16:32 Respiratory Rate 20 06/17/24 16:32 Blood Pressure 144/68 H 06/17/24 16:32 Pulse Oximetry 100 06/17/24 16:32 Oxygen Delivery Room Air 06/17/24 16:32 Reviewed MDM - URI/Sore Throat MDM Narrative Medical decision making narrative: Differential diagnosis considered: Berry virus, strep pharyngitis, allergic rhinitis, upper respiratory tract infection, sinusitis, rhinosinusitis, nasopharyngitis. viral pharyngitis, otitis media, otitis externa, pneumonia, bronchitis, viral cough syndrome, viral syndrome, and influenza.? Exam findings show no acute concerns or changes; patient is non-toxic appearing and is in no distress.? Patient is appropriate for outpatient treatment and follow-up. Differential Diagnosis Differential diagnosis: Likely upper respiratory infection, sinusitis, viral inf ection, influenza and other (COVID, cough) Medical Records Attestation: I reviewed the patient's medical records. Lab Data Attestation: I reviewed the patient's lab results. Lab results narrative: Influenza A negative, InfluenzaB negative, COVID antigen negative. Labs: Lab Results 06/17/24 Range/Units 16:36 POC Influenza A Ag Negative (Negative) POC Influenza B Ag Negative (Negative) POC SARS CoV-2 Ag Negative (Negative) Critical Care Time Critical Care Time Critical Care Time: No Discharge Plan Discharge Clinical Impression: Upper respiratory infection Qualifiers: URI type: unspecified URI Qualified Code(s): J06.9 - Acute upper respiratory infection, unspecified Patient Disposition: Home, Self-Care Condition: Stable Instructions: Upper Respiratory Infection (DC) Additional Instructions: Increase fluids especially juices and water [id number] cough and cold medicine of your choice for your symptoms Tylenol or ibuprofen for any fever pain OTC cough syrup for any cough Zyrtec Claritin or Ami daily heat to the face 20-30 minutes 4-6 times a day for pain Salt water gargles, throat lozenges or throat sprays as desired Patient needs to be fever free for 24 hours without use of Tylenol or ibuprofen before you can return to work Negative COVID and Influenza Patient Language: Icelandic Prescriptions: No Action No Home Medications Follow-up/Referrals: PHYSICIAN,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
[2024-06-17 18:20] LABS: EDCOVIDSCREEN Negative (Negative); EDINFLUASCREEN Negative (Negative); EDINFLUBSCREEN Negative (Negative)
== END 2024-06-17 18:17 | disposition home or self-care (01) ==
PROVIDERS: Emergency Provider Registered Nurse
DX: J06.9 Acute upper respiratory infection, unspecified (principal); Z20.822 Contact with and (suspected) exposure to COVID-19; F17.290 Nicotine dependence, other tobacco product, uncomplicated; K21.9 Gastro-esophageal reflux disease without esophagitis
CPT/HCPCS: 87426; 87804; 99212; G0463